=== PATIENT | male | born 1950 | race Caucasian/White ===

== ENCOUNTER 2024-03-23 11:12 | Inpatient (IN) ==
[2024-03-23] MEDS ORDERED: Sodium Phosphate ADULT ENEMA 133 ML BTL ONE (11:49)
[2024-03-23] MEDS: Lactated Ringers 1000 ml BAG IV.FLUID IV ONE ×2 (13:44→16:03)
[2024-03-23 13:52] LABS: INR 1.35 (0.85-1.14)
[2024-03-23 14:26] LABS: Albumin 3.7 g/dL (3.5-5.7); Albumin/Globulin Ratio 1.4 (1-3); C Reactive Protein 94.31 mg/L (<8.01); Calcium 9.1 mg/dL (8.6-10.3); Creatinine, Serum 1.01 mg/dL (0.67-1.17); Globulin 2.6 g/dL (2-4); Total Bilirubin 1.2 mg/dL (0.2-1.0); Total Protein 6.3 g/dL (6.4-8.9); eGFR CKD-EPI 79.5 (>60)
[2024-03-23 15:00] LABS: Potassium 2.3 mmol/L (3.5-5.0)
[2024-03-23 15:14] LABS: High Sensitivity Troponin 1 Hr 79 pg/mL (<20)
[2024-03-23] MEDS: Potassium Chlor 20 meq TAB.ER PO ONE (16:03)
[2024-03-23] MEDS: KCL 20 MEQ/100 ML IVPREMIX 20 MEQ/100 ML BAG IV SCH ×2 (16:03→23:11)
[2024-03-23] MEDS ORDERED: Magnesium Hydroxide LIQ 30 ML UDC PO PRN (18:19)
[2024-03-23] MEDS ORDERED: Sulfur Hexaflouride MICROSPHR 25 MG VIAL IV PRN (18:25)
[2024-03-23] MEDS ORDERED: Polyethylene Glycol 3350 17 GM PACKET PO PRN (18:26)
[2024-03-23] MEDS ORDERED: Senna TAB 8.6 mg TAB PO PRN (18:26)
[2024-03-23 18:54] LABS: Urine Appearance Clear; Urine Bilirubin Negative (Negative); Urine Blood 1+ (Negative); Urine Color Light-Yellow; Urine Glucose Negative (Negative); Urine Ketones 2+ (Negative); Urine Nitrite Negative (Negative); Urine Protein Trace (Negative); Urine Specific Gravity 1.007 (1.002-1.030); Urine Urobilinogen Negative (Negative)
[2024-03-23 18:55] LABS: Urine Amorphous Crystals Present /HPF (Absent); Urine Bacteria 1+ /HPF (Absent); Urine Red Blood Cell Trace(0-2/hpf) /HPF (0-Trace); Urine White Blood Cell Trace(0-5/hpf) /HPF (0-Trace)
[2024-03-23 18:57] LABS: ABS Basophils 0.1 10^3/uL (0.0-0.1); ABS Eosinophils 0.1 10^3/uL (0.0-0.5); ABS Lymphocytes 1.7 10^3/uL (1.0-4.8); ABS Monocytes 0.9 10^3/uL (0.0-1.1); ABS Neutrophils 11.2 10^3/uL (1.5-7.6); ABS Nucleated RBC 0.03 10^3/ul; Eosinophil % 0.5 %; Hematocrit 38.7 % (38-53); Hemoglobin 13.9 g/dL (13.2-16.3); Lymphocyte % 12.5 %; Mean Corpuscular Hemoglobin 30.9 pg (27-33); Mean Corpuscular Hgb Conc 35.9 g/dL (31-36); Mean Corpuscular Volume 86.1 fL (80-97); Mean Platelet Volume 6.9 fL (7.5-11.2); Nucleated Red Blood Cells % 0.2 %/100WBC (0.0-0.8); Platelet Count 616 10^3/uL (150-450); Red Cell Distribution Width 14.7 % (12-17)
[2024-03-23 19:42] LABS: Phosphorus 2.9 mg/dL (2.5-5.0)
[2024-03-23] MEDS: Senna TAB 8.6 mg TAB PO SCH (21:48)
[2024-03-23] MEDS: Enoxaparin 40 MG/0.4 ML SYR SUBCUT SCH (21:48)
[2024-03-23] MEDS: Magnesium Hydroxide LIQ 30 ML UDC PO SCH (21:48)
[2024-03-24 06:52] LABS: ABS Basophils 0.2 10^3/uL (0.0-0.1); ABS Eosinophils 0.1 10^3/uL (0.0-0.5); ABS Lymphocytes 2.5 10^3/uL (1.0-4.8); ABS Monocytes 1.3 10^3/uL (0.0-1.1); ABS Neutrophils 11.6 10^3/uL (1.5-7.6); ABS Nucleated RBC 0.04 10^3/ul; Eosinophil % 0.7 %; Hematocrit 35.1 % (38-53); Hemoglobin 12.7 g/dL (13.2-16.3); Mean Corpuscular Hemoglobin 31.4 pg (27-33); Mean Corpuscular Hgb Conc 36.3 g/dL (31-36); Mean Corpuscular Volume 86.5 fL (80-97); Mean Platelet Volume 7.5 fL (7.5-11.2); Nucleated Red Blood Cells % 0.3 %/100WBC (0.0-0.8); Platelet Count 637 10^3/uL (150-450); Red Blood Count 4.06 10^6/uL (4.06-5.63); Red Cell Distribution Width 14.7 % (12-17); White Blood Count 15.7 10^3/uL (3.6-10.2)
[2024-03-24 07:09] LABS: Anion Gap 18 mmol/L (2-16); Blood Urea Nitrogen 19 mg/dL (6-24); CO2 Carbon Dioxide 20 mmol/L (22-32); Calcium 9.2 mg/dL (8.6-10.3); Chloride 107 mmol/L (101-111); Creatinine, Serum 1.03 mg/dL (0.67-1.17); Glucose 87 mg/dL (70-100); Magnesium 2.1 mg/dL (1.9-2.7); Sodium 145 mmol/L (135-145); eGFR CKD-EPI 77.7 (>60)
[2024-03-24 09:17] LABS: Phosphorus 2.6 mg/dL (2.5-5.0); Potassium Redraw 2.3 mmol/L (3.5-5.0)
[2024-03-24] MEDS: Aspirin EC 81 mg TAB.EC (enteric coated) PO SCH (09:27)
[2024-03-24] MEDS: Potassium Chlor 20 meq TAB.ER PO ONE ×2 (10:45→18:29)
[2024-03-24] MEDS: KCL 20 MEQ/100 ML IVPREMIX 20 MEQ/100 ML BAG IV SCH (10:56)
[2024-03-24 17:53] LABS: Calcium 8.5 mg/dL (8.6-10.3); Creatinine, Serum 1.03 mg/dL (0.67-1.17); eGFR CKD-EPI 77.7 (>60)
[2024-03-24 17:55] LABS: Potassium 2.6 mmol/L (3.5-5.0)
[2024-03-24] MEDS ORDERED: KCL 20 MEQ/100 ML IVPREMIX 20 MEQ/100 ML BAG IV SCH (18:00)
[2024-03-24 18:20] LABS: Phosphorus 1.7 mg/dL (2.5-5.0)
[2024-03-24] MEDS: Potassium Chloride IV 20 MEQ in Lactated Ringers 1000 ml BAG 1,000 ML IVPB SCH (20:05)
[2024-03-24] MEDS: Potassium Phosphate IV 15 MMOL in NS 0.9% 250 ml 250 ML IVPB ONE (20:28)
[2024-03-25 00:44] LABS: Creatinine, Serum 0.93 mg/dL (0.67-1.17); Potassium 2.7 mmol/L (3.5-5.0); eGFR CKD-EPI 87.8 (>60)
[2024-03-25] MEDS: Potassium Chloride LIQUID 20 MEQ/15 ML LIQUID PO ONE ×3 (01:04→17:51)
[2024-03-25] MEDS: KCL 20 MEQ/100 ML IVPREMIX 20 MEQ/100 ML BAG IV SCH ×2 (01:07→11:18)
[2024-03-25 01:16] LABS: Phosphorus 3.3 mg/dL (2.5-5.0)
[2024-03-25] MEDS: Hyaluronidase HUMAN 15 UNIT in Sodium Chloride 0.9% 0.9 ML INTRADERM ONE (06:26)
[2024-03-25 07:16] LABS: Albumin 3.2 g/dL (3.5-5.7); Albumin/Globulin Ratio 1.4 (1-3); Calcium 8.1 mg/dL (8.6-10.3); Creatinine, Serum 0.8 mg/dL (0.67-1.17); Globulin 2.3 g/dL (2-4); Phosphorus 1.5 mg/dL (2.5-5.0); Potassium 4.2 mmol/L (3.5-5.0); Total Bilirubin 0.9 mg/dL (0.2-1.0); Total Protein 5.5 g/dL (6.4-8.9); eGFR CKD-EPI 94.6 (>60)
[2024-03-25 07:44] LABS: ABS Eosinophils 0.3 10^3/uL (0.0-0.5); ABS Lymphocytes 2.2 10^3/uL (1.0-4.8); ABS Monocytes 0.7 10^3/uL (0.0-1.1); ABS Neutrophils 7.8 10^3/uL (1.5-7.6); ABS Nucleated RBC 0.02 10^3/ul; Eosinophil % 2.8 %; Hematocrit 30.6 % (38-53); Hemoglobin 11.2 g/dL (13.2-16.3); Mean Corpuscular Hemoglobin 31.6 pg (27-33); Mean Corpuscular Hgb Conc 36.7 g/dL (31-36); Mean Corpuscular Volume 86.1 fL (80-97); Mean Platelet Volume 7.1 fL (7.5-11.2); Nucleated Red Blood Cells % 0.1 %/100WBC (0.0-0.8); Platelet Count 634 10^3/uL (150-450); Red Blood Count 3.55 10^6/uL (4.06-5.63); Red Cell Distribution Width 15.2 % (12-17); White Blood Count 11.1 10^3/uL (3.6-10.2)
[2024-03-25 09:11] LABS: TSH Ultra Thyroid Stim Horm 0.96 mcIU/mL (0.34-5.60)
[2024-03-25 09:13] LABS: Free T4 1.26 ng/dL (0.61-1.12)
[2024-03-25 15:24] LABS: Calcium 8.2 mg/dL (8.6-10.3); Creatinine, Serum 0.8 mg/dL (0.67-1.17); Potassium 3.4 mmol/L (3.5-5.0); eGFR CKD-EPI 94.6 (>60)
[2024-03-26 06:56] LABS: Calcium 8.1 mg/dL (8.6-10.3); Creatinine, Serum 0.69 mg/dL (0.67-1.17); Magnesium 1.8 mg/dL (1.9-2.7); Potassium 2.8 mmol/L (3.5-5.0); eGFR CKD-EPI 98.9 (>60)
[2024-03-26] MEDS: Potassium Chloride LIQUID 20 MEQ/15 ML LIQUID PO ONE ×2 (08:09→16:10)
[2024-03-26] MEDS: Magnesium Sulfate 2 gm BAG 2 GM/50 ML BAG IVPB ONE (08:11)
[2024-03-26] MEDS: Influenza Vaccine *TRI* 2024-25* 0.5 ML SYRINGE IM ONE (08:13)
[2024-03-26 08:58] LABS: Hematocrit 28.8 % (38-53); Hemoglobin 10.6 g/dL (13.2-16.3); Mean Corpuscular Hemoglobin 32.5 pg (27-33); Mean Corpuscular Volume 87.8 fL (80-97); Mean Platelet Volume 7.2 fL (7.5-11.2); Platelet Count 592 10^3/uL (150-450); Red Blood Count 3.28 10^6/uL (4.06-5.63); Red Cell Distribution Width 15.3 % (12-17); White Blood Count 10.5 10^3/uL (3.6-10.2)
[2024-03-26] MEDS: Magnesium Sulfate IV 1GM/100ML 1 GM/100 ML BAG IV ONE (09:23)
[2024-03-26] MEDS: KCL 20 MEQ/100 ML IVPREMIX 20 MEQ/100 ML BAG IV SCH (10:08)
[2024-03-26] MEDS: D5W 1000 ml BAG 1,000 ML IV SCH (11:39)
[2024-03-26 14:23] LABS: Calcium 8.2 mg/dL (8.6-10.3); Creatinine, Serum 0.69 mg/dL (0.67-1.17); Potassium 3.6 mmol/L (3.5-5.0); eGFR CKD-EPI 98.9 (>60)
[2024-03-27 07:26] LABS: Creatinine, Serum 0.69 mg/dL (0.67-1.17); eGFR CKD-EPI 98.9 (>60)
[2024-03-27] MEDS: Potassium Chloride LIQUID 20 MEQ/15 ML LIQUID PO ONE ×2 (10:01→14:56)
[2024-03-28 05:51] LABS: ABS Eosinophils 0.4 10^3/uL (0.0-0.5); ABS Lymphocytes 2.2 10^3/uL (1.0-4.8); ABS Monocytes 0.7 10^3/uL (0.0-1.1); ABS Neutrophils 5.6 10^3/uL (1.5-7.6); ABS Nucleated RBC 0.01 10^3/ul; Hematocrit 28.5 % (38-53); Hemoglobin 10.4 g/dL (13.2-16.3); Lymphocyte % 24.6 %; Mean Corpuscular Hemoglobin 32.7 pg (27-33); Mean Corpuscular Hgb Conc 36.4 g/dL (31-36); Mean Corpuscular Volume 89.6 fL (80-97); Mean Platelet Volume 6.9 fL (7.5-11.2); Nucleated Red Blood Cells % 0.1 %/100WBC (0.0-0.8); Platelet Count 574 10^3/uL (150-450); Red Blood Count 3.18 10^6/uL (4.06-5.63); Red Cell Distribution Width 15.2 % (12-17); White Blood Count 8.8 10^3/uL (3.6-10.2)
[2024-03-28 06:13] LABS: Calcium 8.2 mg/dL (8.6-10.3); Creatinine, Serum 0.66 mg/dL (0.67-1.17); Potassium 2.9 mmol/L (3.5-5.0); eGFR CKD-EPI 100.3 (>60)
[2024-03-28] MEDS: Potassium EFFERVES 25 meq TAB PO ONE ×2 (10:24→14:22)
[2024-03-28] MEDS: Potassium Chloride LIQUID 20 MEQ/15 ML LIQUID PO SCH (17:53)
[2024-03-29 06:05] LABS: Calcium 8.4 mg/dL (8.6-10.3); Creatinine, Serum 0.61 mg/dL (0.67-1.17); Magnesium 1.8 mg/dL (1.9-2.7); Potassium 4.4 mmol/L (3.5-5.0); eGFR CKD-EPI 102.7 (>60)
[2024-03-29] MEDS ORDERED: Potassium Chloride LIQUID 20 MEQ/15 ML LIQUID PO SCH (08:00)
[2024-03-29] MEDS: Magnesium Sulfate 2 gm BAG 2 GM/50 ML BAG IVPB ONE (09:33)
[2024-03-29] MEDS: Potassium Chlor 20 meq TAB.ER PO SCH (09:33)
[2024-03-29 16:39] LABS: Calcium 9.3 mg/dL (8.6-10.3); Creatinine, Serum 0.63 mg/dL (0.67-1.17); Potassium 4.7 mmol/L (3.5-5.0); eGFR CKD-EPI 101.7 (>60)
[2024-03-30 06:35] LABS: Calcium 8.5 mg/dL (8.6-10.3); Creatinine, Serum 0.64 mg/dL (0.67-1.17); Magnesium 1.9 mg/dL (1.9-2.7); Potassium 4.7 mmol/L (3.5-5.0); eGFR CKD-EPI 101.2 (>60)
[2024-03-30 06:52] VITALS: BP 157/84
[2024-03-30 09:25] LABS: Rapid COVID-19 Molecular Undetected (Undetected)
== END 2024-03-30 10:55 | DRG 641 ==
LOC: EDHOLD 11:12 → ED 11:12 → MED 20:06 → SSU 03-26 17:27
PROVIDERS: ADMIT Internal Medicine; ATTEND Hospitalist

== ENCOUNTER 2024-04-15 04:01 | Observation (INO) ==
[2024-04-15 04:36] LABS: ABS Eosinophils 0.1 10^3/uL (0.0-0.5); ABS Lymphocytes 1.9 10^3/uL (1.0-4.8); ABS Monocytes 0.6 10^3/uL (0.0-1.1); ABS Neutrophils 7.1 10^3/uL (1.5-7.6); Eosinophil % 0.9 %; Hematocrit 37.2 % (38-53); Hemoglobin 13.1 g/dL (13.2-16.3); Lymphocyte % 19.3 %; Mean Corpuscular Hemoglobin 32.6 pg (27-33); Mean Corpuscular Hgb Conc 35.2 g/dL (31-36); Mean Corpuscular Volume 92.6 fL (80-97); Mean Platelet Volume 6.9 fL (7.5-11.2); Platelet Count 495 10^3/uL (150-450); Red Blood Count 4.01 10^6/uL (4.06-5.63); Red Cell Distribution Width 15.2 % (12-17); White Blood Count 9.7 10^3/uL (3.6-10.2)
[2024-04-15 04:43] LABS: INR 1.22 (0.85-1.14)
[2024-04-15] MEDS: Ondansetron 4 mg VIAL 2 MG/ML 2 ml VIAL IV ONE (04:52)
[2024-04-15 04:55] LABS: Albumin 3.9 g/dL (3.5-5.7); Albumin/Globulin Ratio 1.4 (1-3); Calcium 9.5 mg/dL (8.6-10.3); Creatinine, Serum 0.69 mg/dL (0.67-1.17); Globulin 2.8 g/dL (2-4); Magnesium 1.8 mg/dL (1.9-2.7); Total Bilirubin 0.5 mg/dL (0.2-1.0); Total Protein 6.7 g/dL (6.4-8.9); eGFR CKD-EPI 98.9 (>60)
[2024-04-15] MEDS ORDERED: LORazepam 2 mg VIAL 1 ml ONE (05:08)
[2024-04-15] MEDS ORDERED: Lorazepam PYXIS KEY PRN ×2 (05:08→10:16)
[2024-04-15] MEDS: LORazepam 2 mg VIAL 1 ml IV PUSH ONE (05:10)
[2024-04-15] MEDS: levETIRAcetam IV 1,500 MG in NS 0.9% 100 ml BAG 100 ML IVPB SCH (09:39)
[2024-04-15] MEDS: KCL 20 MEQ/100 ML IVPREMIX 20 MEQ/100 ML BAG IV SCH (09:39)
[2024-04-15] MEDS ORDERED: LORazepam 2 mg VIAL 1 ml IV PUSH PRN (10:16)
[2024-04-15] MEDS: Magnesium Sulfate 2 gm BAG 2 GM/50 ML BAG IVPB ONE (10:54)
[2024-04-15 11:13] LABS: HDL Cholesterol 36.5 mg/dL
[2024-04-15] MEDS ORDERED: Sulfur Hexaflouride MICROSPHR 25 MG VIAL IV PRN (17:30)
[2024-04-15] MEDS: Enoxaparin 40 MG/0.4 ML SYR SUBCUT SCH (20:52)
[2024-04-16 06:02] LABS: Creatinine, Serum 0.79 mg/dL (0.67-1.17); Potassium 3.9 mmol/L (3.5-5.0)
[2024-04-16] MEDS: Multivitamins/Minerals TAB PO SCH (09:53)
[2024-04-18 06:20] LABS: Calcium 9.2 mg/dL (8.6-10.3); Creatinine, Serum 0.76 mg/dL (0.67-1.17); Potassium 4.2 mmol/L (3.5-5.0); eGFR CKD-EPI 96.1 (>60)
[2024-04-18 10:21] VITALS: BP 134/93
== END 2024-04-18 10:45 | disposition home or self-care (01) ==
LOC: ED 04:01 → EDHOLD 04:01 → SUATTDRO 10:04 → MEDTELE 13:26
PROVIDERS: ADMIT Hospitalist; ATTEND Student in an Organized Health Care Education/Training Program